=== PATIENT | female | born 1975 | race African-American/Black ===

== ENCOUNTER 2018-10-13 18:17 | Emergency (ER) | payer MEDICAID ==
[~2018-10-13] VITALS: Ht 170.2 cm; Wt 77.0 kg
[~2018-10-13 18:17] MED LIST: ZANTAC
[2018-10-13 20:06] VITALS: BP 121/72
[2018-10-13] MEDS ORDERED: BENZONATATE 100MG CAPSULE PO ONE (20:15)
[2018-10-13] MEDS ORDERED: IPRATROPIUM BROMIDE (0.02%) 0.5MG/2.5ML NEB HHN STA (20:38)
[2018-10-13] MEDS ORDERED: ALBUTEROL (0.083%) 2.5MG/3ML NEB HHN STA (20:38)
== END 2018-10-13 22:21 | disposition home or self-care (01) ==
LOC: ER 18:17
DX: J20.9 Acute bronchitis, unspecified (principal); F12.10 Cannabis abuse, uncomplicated; Z98.890 Other specified postprocedural states; Z79.899 Other long term (current) drug therapy; Z87.891 Personal history of nicotine dependence
CPT/HCPCS: 71045; 81025; 93005; 94640; 99283; J7611